=== PATIENT | female | born 1955 ===

== ENCOUNTER 2021-06-21 16:45 | Outpatient (REF) | payer OTHER, SELFPAY ==
[2021-06-23 11:23] LABS: COVID-19 RT-PCR UVMMC Result Negative (Negative)
== END 2021-06-21 16:46 | disposition home or self-care (01) ==
LOC: LBN 16:45
PROVIDERS: Visit Provider Nurse Practitioner Family
DX: R09.89 Other specified symptoms and signs involving the circulatory and respiratory systems (principal); Z20.822 Contact with and (suspected) exposure to COVID-19
CPT/HCPCS: U0003